=== PATIENT | female | born 1940 | race Caucasian/White ===

== ENCOUNTER 2023-08-10 12:29 | Emergency (ER) | payer MEDICARE, BC, SELFPAY ==
[2023-08-10 12:30] VITALS: BP 125/74; PULSE 94; RESP 18; TEMP 35.8; O2SAT 100; BMI 21.6
--- NOTE | 2023-08-10 12:47 | EX.ED.DYSGE1 ---
HPI History of Present Illness Chief Complaint: Wound Check Detail of Chief Complaint: Presents to have stitches removed from right chest Informant: patient Narrative Narrative: Patient presents for a wound check and to have stitches removed from her right chest. Patient states that she was being seen by physicians in [place] where she was living at the time and in June had a tach procedure on her right lung because she was having fluid collections that needed to be drained. She had a drain in place that was then removed and had stitches placed after the stitches were placed in the drain tube removed she had drainage from the wound so they restitch to the area. Patient developed a fluid collection beneath the stitches that the daughter thinks has gotten larger in the last 2 weeks. The daughter brought the patient to the area to care for her and is transferring her care here. Patient was post to have her stitches removed by her original surgeons 5 days ago. They will be establishing with a primary care physician here in the area but the daughter wanted to have her stitches removed and evaluate this fluid collection beneath the skin. Patient's had no fevers or chills or sweats. PFSH PFS Medical History (Updated 08/10/23 @ 14:[address] Kathlene Martinez, DO) Atrial fibrillation Depression Hypertension Lung cancer Overactive bladder Home Medications apixaban 5 mg tablet (Eliquis) 5 mg PO BID 08/10/23 [History Last Taken Unknown] escitalopram oxalate 5 mg tablet 5 mg PO DAILY 08/10/23 [History Last Taken Unknown] metoprolol tartrate 75 mg tablet 75 mg PO BID 08/10/23 [History Last Taken Unknown] trospium 20 mg tablet 20 mg PO BID 08/10/23 [History Last Taken Unknown] Allergy/AdvReac Type Severity Reaction Status Date / Time No Known Allergies Allergy Verified 08/10/23 12:33 Surgical History (Updated 08/10/23 @ 13:02 by Dalila Panchal) History of bilateral knee replacement History of knee surgery History of lung surgery Social History Smoking Status: Former smoker ROS ROS ED Review of Systems ROS Unobtainable: other Constitutional Constitutional ED: Reports lethargy; Denies chills, fever(s), sweats or weight loss Eyes Eyes: Denies blurry vision, change in vision or diplopia ENT ENT ED: Denies rhinorrhea or sore throat Cardiovascular Cardiovascular: Denies chest pain, orthopnea or racing heartbeat Respiratory/Chest Respiratory/Chest: Denies cough, dyspnea, dyspnea on exertion, orthopnea or sputum Gastrointestinal Gastrointestinal: Denies abdominal pain, diarrhea, nausea or vomiting Genitourinary Genitourinary ED: Denies dysuria, hematuria or urinary frequency Musculoskeletal Musculoskeletal: Denies arthralgias, back pain, myalgias or neck pain Integumentary Reports other Details: Need for suture removal and wound check ; Denies abscess, Abrasions or rash Neurologic Neurologic: Denies headache(s) or weakness Psychiatric Psychiatric: Denies anxiety, depression or suicidal thoughts Endocrine Endocrinology: Denies polydipsia, polyphagia or polyuria Hematologic/Lymphatic Hematologic/Lymphatic: Denies easy bleeding, easy bruising or lymphadenopathy Allergic/Immunologic Allergic/Immunologic ED: Denies mouth swelling, tongue swelling or urticaria EXAM Physical Exam Const Vital Signs: 08/10/23 12:30 Temperature 96.5 F L Temperature Source Temporal Pulse Rate 94 Respiratory Rate 18 Blood Pressure 125/74 H Blood Pressure Mean 91 Pulse Ox 100 Positive well nourished and well developed General Appearance ED: well developed and NAD HEENT Reports TM's clear and moist mucous membranes normocephalic and atraumatic; Negative for trauma or tenderness Tympanic Membrane ED: Yes TM's clear Eyes PERRL and EOMs intact bilaterally General Eye ED: Negative for pale conjunctiva or scleral icterus Neck no lymphadenopathy, supple and no JVD General: Negative for tenderness Chest Wall inspection of chest normal and palpation of chest normal Chest Narrative: Right chest wall-patient has [address] in the mid axillary line. She has soft tissue fluid collection beneath the skin measuring approximately 7 cm in diameter with fluid wave noted. There is no erythema or cellulitic changes or warmth. No signs of infection. Chest: Negative for tenderness Resp normal respiratory effort and clear to auscultation bilaterally Effort and Inspection: Negative for respiratory distress or pain with movement Auscultation: Negative for rhonchi, wheezes or diminished lung sounds Cardio regular rate, regular rhythm, S1 normal heart sound, S2 normal heart sound and no murmurs Peripheral Pulses: pulses 2+ throughout GI normal to inspection, nondistended, normoactive bowel sounds, soft to palpation, non-tender, non-distended and no masses Back/Spine no CVA tenderness and no thoracic nor lumbar tenderness Extremity normal to inspection General Extremety ED: Negative for edema General Extremity: Negative for edema Neuro oriented x3, CN's II-XII intact bilaterally, no sensory deficits noted and gait normal Sensorium / Orientation: awake, alert, oriented to person, oriented to place and oriented to time Motor Exam: strength 5/5 throughout and strength abnormal Psych mental status grossly normal Skin no rashes or lesions noted and no wounds MDM MDM MDM Narrative Medical decision making narrative: Patient presents to have her sutures removed from her right chest where she had a drain previously. Patient did not follow-up with her surgeon of record 5 days ago as instructed as she was moved up to [place] from [place] for her daughter to care for her here. Her daughter has not established new physicians as of yet. Patient also noted to have a soft tissue swelling and fluid underneath the skin where the sutures are placed. She has not had any fever or infectious symptoms otherwise. I did attempt to contact patient's surgeon of record Dr. Lyman however she was in the OR and I spoke with her nurse. Patient was well-known to them. Plan was to remove the sutures 5 days ago but there was no plan to do anything with the fluid underneath the skin as they felt that even if they remove the day it would reaccumulate. Patient has no signs of infection. I did obtain a CT scan of the chest to evaluate further the fluid collection. Patient does have moderate pleural effusions as well as a 7 cm x 4.3 cm x 5.8 cm soft tissue fluid density in the subcu tissues overlying the inferior right lateral chest wall. Patient also noted to have a pericardial effusion. Clinically she looks well and is stable. Recommended to daughter that she establish with a cardiothoracic surgeon as she may require further treatments of her pleural effusion if it continues to accumulate. Patient will also establish with [facility] oncology. I was able to remove patient stitches without difficulty she had 3 stitches that were easily removed. At this time there is no dehiscence. No signs of infection. I also discussed case with patient's oncologist from [place] who was comfortable with plan and stated that she needed to reestablish as currently she is only on immunotherapy and not currently taking chemotherapy. Radiography Diagnostic Testing: Clinical Impression(s) from Imaging Studies Chest CT 08/10/23 13:22 IMPRESSION: Mediastinal lymphadenopathy and right supraclavicular adenopathy. Moderate size loculated right pleural effusion with fluid in the right major fissure as well. Pericardial effusion. 7 cm x 4.3 cm x 5.8 cm soft tissue/fluid density in the subcutaneous tissues overlying the inferior right lateral chest wall. Electronically Signed: Long Farley MD at 14:14 EST , Discharge Plan Triage Chief Complaint: Wound Check ED Provider: Kathleen Martinez Dx/Rx/DC Orders Clinical Impression: Visit for wound check, Visit for suture removal Instructions: ED Post Op Wound Check, General, Sutr or Stap Removal Prescriptions: No Action trospium 20 mg tablet 20 mg PO BID Rx Instructions: administer on an empty stomach metoprolol tartrate 75 mg tablet 75 mg PO BID escitalopram oxalate 5 mg tablet 5 mg PO DAILY Eliquis 5 mg tablet 5 mg PO BID Primary Care Provider: Shayy Live Referrals: Shayy Live, [Primary Care Provider] - As Needed Activity Restrictions/Additional Instructions: Dr. Gaines cardiothoracic surgeon at [facility] Disposition Disposition: Home, Self Care
--- NOTE | 2023-08-10 13:22 | CT_ITS ---
STUDY: CT CHEST WITHOUT CONTRAST REASON FOR EXAM: Female, 82 years old. Fluid collection to right chest wall. History of a prior right chest tube insertion with the soft tissue swelling overlying the right lateral hemithorax. RADIATION DOSAGE (If Supplied By Facility): CTDIvol = ( 7.05 ) mGy, DLP = ( 244.94 ) mGycm TECHNIQUE: Transaxial imaging was performed without the administration of intravenous contrast material. Multiplanar coronal and sagittal images were reformatted. Individualized dose optimization techniques were used for this CT. COMPARISON: No relevant priors. FINDINGS: CHEST There is a 7 cm x4.3 cm x 5.8 cm soft tissue/fluid density in the subcutaneous tissues overlying the inferior right lateral chest wall. Mild increased markings at the left lung base suggestive of atelectasis and/or scarring. There is evidence of a moderate size loculated right pleural effusion with a small amount of fluid in the right major fissure. There are calcifications of the coronary arteries. Small pericardial effusion. Enlarged mediastinal lymph nodes more prominent in the aortopulmonary window as well as in the right paratracheal and subcarinal regions. There is a 2.5 cm x 3.3 cm rounded soft tissue density in the medial aspect of the right supraclavicular region. Enlarged lymph node should be ruled out. Normal hilar regions. Normal unenhanced pulmonary arteries. There is atherosclerotic calcification of the aortic arch with tortuosity and elongation of the aortic arch and descending thoracic aorta. There are multi-level degenerative changes of the thoracic spine. There is no demonstrated abnormality of the visualized upper abdomen. CT/Chest without Contrast IMPRESSION: Mediastinal lymphadenopathy and right supraclavicular adenopathy. Moderate size loculated right pleural effusion with fluid in the right major fissure as well. Pericardial effusion. 7 cm x 4.3 cm x 5.8 cm soft tissue/fluid density in the subcutaneous tissues overlying the inferior right lateral chest wall. Electronically Signed: Long Farley MD at 14:14 EST ,
[2023-08-10 14:58] VITALS: BP 141/78; PULSE 80; RESP 12; TEMP 35.5; O2SAT 95
== END 2023-08-10 15:00 | disposition home or self-care (01) ==
PROVIDERS: Emergency Provider Emergency Medicine; PCP Family Medicine; Visit Provider Emergency Medicine
DX: Z51.89 Encounter for other specified aftercare (principal); I48.91 Unspecified atrial fibrillation; Z87.891 Personal history of nicotine dependence; Z48.02 Encounter for removal of sutures; I10 Essential (primary) hypertension; Z85.118 Personal history of other malignant neoplasm of bronchus and lung; Z79.01 Long term (current) use of anticoagulants; Z79.899 Other long term (current) drug therapy; F32.A Depression, unspecified; Z96.653 Presence of artificial knee joint, bilateral
CPT/HCPCS: 71250; 99282

== ENCOUNTER → 2023-08-28 | Outpatient (CLI) | payer MEDICARE, BC, SELFPAY ==
--- NOTE | 2023-08-28 17:00 | RAD_ITS ---
STUDY: X-RAY - SOFT TISSUE NECK REASON FOR EXAM: Female, 83 years old. Neck pain TECHNIQUE: 2 view(s) of the neck were obtained. COMPARISON: None. FINDINGS: Normal visualized nasopharynx, oropharynx, hypopharynx. Normal epiglottis. Normal visualized subglottic tracheal air column. Normal prevertebral soft tissue structures. There are degenerative changes of the cervical spine with cervical spondylosis. The soft tissue structures are unremarkable. RAD/Neck for Soft Tissue IMPRESSION: Normal x-ray soft tissue neck. Degenerative disc disease of the cervical spine. Electronically Signed: Marlo Torres MD at 17:56 EST ,
== END | disposition home or self-care (01) ==
LOC: MTRAD 17:00
PROVIDERS: PCP Family Medicine; Referring Provider Family Medicine; Visit Provider Family Medicine
DX: M54.2 Cervicalgia (principal)
CPT/HCPCS: 70360

== ENCOUNTER → 2023-09-17 | Outpatient (CLI) | payer MEDICARE, BC, SELFPAY ==
--- NOTE | 2023-09-17 15:50 | RAD_ITS ---
INDICATION: SOB in CHF EXAMINATION/TECHNIQUE: X-RAY - XR Chest 2 Views COMPARISON: 08/10/2023 CT. FINDINGS: LINES/DEVICES: None. LUNGS: Layering right effusion with focal fluid with loculated fluid along the right lateral chest and minor fissure without significant change from prior CT. No gross left effusion. No new consolidation. No florid interstitial edema. No pneumothorax. MEDIASTINUM AND CARDIOVASCULAR STRUCTURES: Unchanged cardiomegaly. Aortic atherosclerosis. BONES AND SOFT TISSUES: Chronic anterior compression deformities at the thoracolumbar junction.. RAD/Chest PA and Lateral IMPRESSION: Cardiomegaly with unchanged moderate mixed layering right effusion and loculated fluid along the lateral right chest and right minor fissure. Electronically Signed: Nelson Boss MD at 18:46 EDT ,
[2023-09-17 17:51] LABS: BNP,B-Type NATRIURETIC PEPTIDE 193.7 pg/mL (0-100)
== END | disposition home or self-care (01) ==
LOC: MTLAB 15:50
PROVIDERS: PCP Family Medicine; Referring Provider Family Medicine; Visit Provider Family Medicine
DX: I50.9 Heart failure, unspecified (principal); R06.02 Shortness of breath
CPT/HCPCS: 36415; 71046; 83880

== ENCOUNTER 2023-10-28 17:32 | Emergency (ER) | payer MEDICARE, BC, SELFPAY ==
[2023-10-28] VITALS (8 sets, daily range): BP systolic 118–156; BP diastolic 79–91; PULSE 78–135; RESP 16–30; TEMP 35.9–36.4; O2SAT 94–98
--- NOTE | 2023-10-28 17:43 | EDS_ITS ---
HPI History of Present Illness Chief Complaint: Weakness Informant: patient and family Narrative Narrative: Here with daughter increasing weakness dyspnea since this afternoon. 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 History of A-fib diagnosis past June on metoprolol 75 mg twice daily and Eliquis. She has been compliant with last dose this morning. She denies feeling of racing heart or lightheaded symptoms. Denies chest pain. Per daughter has had pleural effusion drained along with pericardial effusion drain while in [place]. No cough. Prior similar symptoms: Yes PFSH PFSH Medical History Atrial fibrillation Depression Hypertension Lung cancer Overactive bladder Home Medications apixaban 5 mg tablet (Eliquis) 5 mg PO BID 08/10/23 [History Last Taken Unknown] escitalopram oxalate 5 mg tablet 5 mg PO DAILY 08/10/23 [History Last Taken Unknown] metoprolol tartrate 75 mg tablet 75 mg PO BID 08/10/23 [History Last Taken Unknown] trospium 20 mg tablet 20 mg PO BID 08/10/23 [History Last Taken Unknown] nitrofurantoin monohydrate/macrocrystals 100 mg capsule 100 mg PO Q12 #10 CAPSULES 10/28/23 [Rx Last Taken Unknown] Allergy/AdvReac Type Severity Reaction Status Date / Time No Known Allergies Allergy Verified 08/10/23 12:33 Surgical History History of bilateral knee replacement History of knee surgery History of lung surgery Social History Smoking Status: Former smoker ROS ROS ED Constitutional Constitutional ED: Denies chills, fever(s) or sweats Eyes Eyes: Denies change in vision ENT ENT ED: Denies dysphagia or sore throat Cardiovascular Cardiovascular: Denies chest pain, leg edema, palpitations or racing heartbeat Respiratory/Chest Respiratory/Chest: Reports dyspnea; Denies cough or dyspnea on exertion Gastrointestinal Gastrointestinal: Denies abdominal pain, diarrhea, nausea or vomiting Genitourinary Genitourinary ED: Denies dysuria, hematuria or urinary frequency Musculoskeletal Musculoskeletal: Denies back pain, extremity pain or neck pain Integumentary Denies rash or wounds Neurologic Neurologic: Reports weakness; Denies headache(s) or paresthesias EXAM Physical Exam Const Vital Signs: 10/28/23 17:33 10/28/23 17:42 10/28/23 18:30 Temperature 96.7 F L Temperature Source Temporal Pulse Rate 135 H 94 Respiratory Rate 18 28 H Respiratory Effort Short of Breath Respiratory Pattern Tachypnea Blood Pressure 118/79 127/91 H Blood Pressure Mean 92 103 Pulse Ox 94 94 Oxygen Delivery Method Room Air 10/28/23 19:00 10/28/23 19:47 10/28/23 20:00 Temperature Temperature Source Pulse Rate 100 82 78 Respiratory Rate 16 30 H 27 H Respiratory Effort Respiratory Pattern Blood Pressure 136/82 H 156/91 H 139/83 H Blood Pressure Mean 100 112 101 Pulse Ox 98 94 94 Oxygen Delivery Method Room Air Room Air Room Air 10/28/23 21:00 10/28/23 21:22 Temperature 97.6 F L Temperature Source Pulse Rate 79 78 Respiratory Rate 17 19 H Respiratory Effort Respiratory Pattern Blood Pressure 141/79 H 127/81 H Blood Pressure Mean 99 96 Pulse Ox 94 95 Oxygen Delivery Method Room Air Positive well nourished and well developed General Appearance ED: well developed and NAD HEENT Reports moist mucous membranes normocephalic and atraumatic Eyes PERRL, EOMs intact bilaterally and conjunctivae normal General Eye ED: Yes normal appearance of both eyes Neck no lymphadenopathy and supple General: Negative for tenderness Chest Wall Chest: Negative for tenderness Resp normal respiratory effort and normal air movement Resp Narrative: Blunting breath sounds right lower lobe Effort and Inspection: symmetric chest movement; Negative for respiratory distress Cardio no murmurs Rate: tachycardic Rhythm: abnormal rhythm Peripheral Pulses: pulses 2+ throughout GI normal to inspection, nondistended, normoactive bowel sounds and non-tender Palpation: Negative for guarding or rebound tenderness present Back/Spine no CVA tenderness and no thoracic nor lumbar tenderness Extremity normal to inspection General Extremety ED: Negative for edema or tenderness General Extremity: Negative for edema Neuro oriented x3 and no sensory deficits noted Sensorium / Orientation: awake and alert Skin no rashes or lesions noted and no wounds MDM MDM MDM Narrative Medical decision making narrative: Interventions / MDM: Differential diagnosis: Atrial fibrillation, pleural effusion Diagnosis considered but do not suspect: N/A My EKG interpretation: EKG #1: A-fib RVR 110, no ST or T wave changes. EKG #2 at 1959 sinus rhythm with no ST or T wave changes. Imaging independently reviewed and interpreted by myself: 1 view chest x-ray: Right pleural effusion. External documents reviewed: N/A Test considered but not ordered:N/A ED course: Patient sounded A-fib RVR confirmed with EKG. She has been compliant with her medications. IV Lopressor ordered. Workup initiated due to her weakness complaints. Chest x-ray urine added to the labs. Initial after 2 dose of Lopressor nurse reports heart rate in the 90s, her labs white count 11.9 electrolytes are all normal. Chest x-ray right pleural effusion she is not dyspneic or hypoxic. Urine notes signs of infection culture sent. Patient came back from the restroom then converted back to normal sinus rhythm. This confirmed on EKG. Clinically feeling much better after this. She was ambulated she is not hypoxic. She was started on Macrobid for UTI with weakness. Discussed with daughter since moving up. She is established with [facility] cardiology, cardiothoracic surgery, oncology, she is awaiting pulmonology. She continue her home medications. Return precautions. All questions were answered. Re-evaluation: stable Disposition discussed with patient/family/significant other: Patient and daughter Case discussed with consulting clinician: N/A This note was generated with [employer] dictation software. It may contain incorrect words, spelling, and punctuation that were not noted in checking the note before signing. Lab Data Attestation: I reviewed the patient's lab results. Labs: Laboratory Results - last 24 hr 10/28/23 10/28/23 17:40 19:45 WBC 11.5 H RBC 4.20 Hgb 12.2 Hct 38.7 MCV 92.1 MCH 29.0 MCHC 31.5 L RDW Std Deviation 49.9 H RDW Coeff of Jairon 14.7 H Plt Count 464 H MPV 10.4 Immature Gran % (Auto) 0.400 Neut % (Auto) 74.8 H Lymph % (Auto) 13.5 L Edmunds % (Auto) 8.8 Eos % (Auto) 1.9 Baso % (Auto) 0.6 Absolute Neuts (auto) 8.6 H Absolute Lymphs (auto) 1.56 Nucleated RBC % 0 PT 14.8 INR 1.2 APTT 30.9 Sodium 131 L Potassium 4.3 Chloride 98 Carbon Dioxide 27.0 Anion Gap 6 BUN 38 H Creatinine 1.00 Est GFR (MDRD) Af Amer 68 Est GFR (MDRD) Non-Af 56 L BUN/Creatinine Ratio 38.0 H Glucose 140 H Calcium 9.6 Urine Color Yellow Urine Clarity Clear Urine pH 6.5 Ur Specific [place] 1.010 Urine Protein 15 H Urine Glucose (UA) Normal Urine Ketones Negative Urine Occult Blood Negative Urine Nitrite Negative Urine Bilirubin Negative Urine Urobilinogen Normal Ur Leukocyte Esterase 500 H Urine RBC 0 SEEN Urine WBC 5-10 SEEN Ur Squamous Epith Cells 0 SEEN Urine Bacteria 1+ Urine Mucus 0 SEEN Radiography Diagnostic Testing: Clinical Impression(s) from Imaging Studies Chest X-Ray 10/28/23 17:45 IMPRESSION: Right lower lung consolidation with pleural effusion. Mediastinal lymphadenopathy. Electronically Signed: Flako Jin MD at 18:22 EDT Reading Location ID and State: [address] [place] [address] , Service support , Discharge Plan Triage Chief Complaint: Weakness ED Provider: Cuco Lozoya Dx/Rx/DC Orders Clinical Impression: Lung cancer, Acute UTI, AF (paroxysmal atrial fibrillation), Pleural effusion, right Instructions: Urinary Tract Infections in Women, ED AFIB, ED Pleural Effusion Prescriptions: New nitrofurantoin monohyd/m-cryst [nitrofurantoin monohyd/m-cryst] 100 mg capsule 100 mg PO Q12 Qty: 10 0RF No Action trospium 20 mg tablet 20 mg PO BID Rx Instructions: administer on an empty stomach metoprolol tartrate 75 mg tablet 75 mg PO BID escitalopram oxalate 5 mg tablet 5 mg PO DAILY Eliquis 5 mg tablet 5 mg PO BID Primary Care Provider: Maxim Pablo Referrals: Maxim Pablo MD [Primary Care Provider] - 1 Week Activity Restrictions/Additional Instructions: You were in atrial fibrillation however you converted in the ED. You have right pleural effusion. You have a urinary tract infection. Take and finish antibio tic as prescribed. Follow-up with your doctors through [facility]. Symptoms worsen, return to the ED for reevaluation. Continue your home medications. Disposition Disposition: Home, Self Care Discharge Date/Time: 10/28/23 21:31
--- NOTE | 2023-10-28 17:45 | RAD_ITS ---
STUDY: X-RAY CHEST REASON FOR EXAM: Female, 83 years old. Dyspnea TECHNIQUE: Single AP portable view of the chest. COMPARISON: September 17, 2023 FINDINGS: There is right mid and lower lung opacity with worsening consolidation and pleural effusion. There is loculation of effusion and/or mass in the lower lobe. There is postoperative change in the lower lung. There is mild cardiac enlargement. There is widening of the right paratracheal region consistent with lymphadenopathy. Normal visualized pulmonary arteries. Normal visualized aortic arch and descending thoracic aorta. Normal visualized thoracic spine. There is healed right rib fracture. There is no demonstrated abnormality of the visualized soft tissue structures of the upper abdomen. RAD/Chest 1 View (Portable) IMPRESSION: Right lower lung consolidation with pleural effusion. Mediastinal lymphadenopathy. Electronically Signed: Flako Jin MD at 18:22 EDT ,
[2023-10-28 18:00] LABS: Absolute Lymphocyte Count 1.56 X10^3/uL (0.83-4.51); Absolute Neutrophil Count 8.6 X10^3/uL (2.0-7.7); Basophil# 0.07 X10^3/uL; Basophil% 0.6 % (0-1); Eosinophil# 0.22 X10^3/uL; Eosinophils% 1.9 % (0-5); Hematocrit 38.7 % (37-47); Hemoglobin 12.2 g/dL (12.0-15.0); Lymphocyte # 1.56 X10^3/ul (0.83-4.51); Lymphocyte % 13.5 % (19-41); Mean Corp Hgb Conc 31.5 g/dL (32-36); Mean Corpuscular Volume 92.1 fL (81-99); Mean Platelet Vol. 10.4 fl (6.2-12.0); Monocyte# 1.01 X10^3/uL; Monocyte% 8.8 % (0-10); NRBC Flagged by Analyzer 0 % (0-5); Neutrophil # 8.63 X10^3/uL (2.7-7.7); Neutrophil % 74.8 % (47-70); Platelet Count 464 K/mm3 (150-450); RBC Distribution Width CV 14.7 % (11.6-14.6); RBC Distribution Width SD 49.9 fl (35.1-43.9); White Blood Count 11.5 K/mm3 (4.4-11.0)
[2023-10-28 18:05] LABS: International Normalized Ratio 1.2; Prothrombin Time (Protime)PT. 14.8 SECONDS (11.7-14.9)
[2023-10-28 18:06] LABS: Partial Thromboplast Time 30.9 Seconds (24.1-36.2)
[2023-10-28 18:12] LABS: Anion Gap 6 (5-15); BUN 38 mg/dL (7-18); Calcium,Total 9.6 mg/dL (8.5-10.1); Chloride 98 mmol/L (98-107); EST Glomerular Filtration Rate 56 mL/min (>60); Est Glom Filt Rate - Afr Amer 68 mL/min (>60); Glucose 140 mg/dL (74-106); Potassium 4.3 mmol/L (3.5-5.1); Sodium Level 131 mmol/L (136-145)
[2023-10-28] MEDS: Metoprolol Tartrate 5 MG/5 ML Vial IV ×2 (18:17→18:22)
[2023-10-28 19:50] LABS: Mucous, Urine 0 SEEN /hpf (<or=2+); Red Blood Cells-Urine 0 SEEN /hpf (0-5); Squamous Epithelial Cells - UA 0 SEEN /hpf (5-10)
[2023-10-28 19:56] LABS: Color, Urine Yellow (Yellow); Glucose, Dipstick Normal (Normal); Ketone-Dipstick Negative (Negative); Leukocyte Esterase-Dipstick 500 /ul (Negative); Nitrite-Dipstick Negative (Negative); Occult Blood-Urine Negative /ul (Negative); Protein-Dipstick 15 mg/dl (Negative); Urine Bilirubin Dipstick Negative (Negative); Urine Clarity Clear (Clear); Urine Urobilinogen Normal (Normal); Urine pH 6.5 (5.0 - 8.0)
[2023-10-28 20:04] LABS: Bacteria 1+ /hpf (None Seen); White Blood Cells 5-10 SEEN /hpf (0-5)
[2023-10-28] MEDS: Nitrofurantoin Macrocrystals 100 MG Capsule PO (21:21)
== END 2023-10-28 21:31 | disposition home or self-care (01) ==
PROVIDERS: Emergency Provider Emergency Medicine; PCP Family Medicine; Visit Provider Emergency Medicine
DX: R53.1 Weakness (principal); C34.90 Malignant neoplasm of unspecified part of unspecified bronchus or lung; I48.0 Paroxysmal atrial fibrillation; N39.0 Urinary tract infection, site not specified; J90 Pleural effusion, not elsewhere classified; Z87.891 Personal history of nicotine dependence; Z79.01 Long term (current) use of anticoagulants; I10 Essential (primary) hypertension; F32.A Depression, unspecified; Z79.899 Other long term (current) drug therapy; Z96.653 Presence of artificial knee joint, bilateral
CPT/HCPCS: 71045; 80048; 81001; 85025; 85610; 85730; 87086; 87088; 87186; 93005; 99284; A4216

== ENCOUNTER 2023-10-30 17:03 | Emergency (ER) | payer MEDICARE, BC, SELFPAY ==
[2023-10-30] VITALS (10 sets, daily range): BP systolic 99–160; BP diastolic 76–106; PULSE 78–155; RESP 12–30; TEMP 36.7–37.2; O2SAT 88–98
--- NOTE | 2023-10-30 17:57 | RAD_ITS ---
INDICATION: SOB EXAMINATION/TECHNIQUE: X-RAY - XR Chest 2 Views COMPARISON: September 17, 2023, October 28, 2023. Radiograph, August 10, 2023 CT FINDINGS: LINES/DEVICES: None. LUNGS: Increased right basilar opacification with layering effusion. Loculated effusion along the right minor fissure. Persistent patchy opacification in the lateral right midlung. No left lung consolidation or effusion. No florid edema. No pneumothorax. MEDIASTINUM AND CARDIOVASCULAR STRUCTURES: East silhouette is unchanged from prior exam with cardiomegaly. Aortic atherosclerosis. BONES AND SOFT TISSUES: Unremarkable. Sequela of old right lateral rib fracture. RAD/Chest PA and Lateral IMPRESSION: Increased chronic opacification in the right lower lung with unilateral layering effusion. Persistent patchy lateral right midlung opacities are also noted. Consider repeat CT characterization. Electronically Signed: Nelson Boss MD at 18:42 EDT ,
[2023-10-30 18:17] LABS: Absolute Lymphocyte Count 1.67 X10^3/uL (0.83-4.51); Absolute Neutrophil Count 8.8 X10^3/uL (2.0-7.7); Basophil# 0.07 X10^3/uL; Basophil% 0.6 % (0-1); Eosinophil# 0.23 X10^3/uL; Eosinophils% 1.9 % (0-5); Hematocrit 36.9 % (37-47); Hemoglobin 11.7 g/dL (12.0-15.0); Lymphocyte # 1.67 X10^3/ul (0.83-4.51); Lymphocyte % 14.1 % (19-41); Mean Corp Hgb Conc 31.7 g/dL (32-36); Mean Corpuscular Hgb 29.8 pg (27.0-32.0); Mean Corpuscular Volume 94.1 fL (81-99); Mean Platelet Vol. 10.5 fl (6.2-12.0); Monocyte% 9.3 % (0-10); NRBC Flagged by Analyzer 0 % (0-5); Neutrophil # 8.76 X10^3/uL (2.7-7.7); Neutrophil % 73.7 % (47-70); Platelet Count 438 K/mm3 (150-450); RBC Distribution Width CV 14.9 % (11.6-14.6); RBC Distribution Width SD 51.9 fl (35.1-43.9); Red Blood Count 3.92 M/mm3 (4.2-5.4); White Blood Count 11.9 K/mm3 (4.4-11.0)
[2023-10-30 18:35] LABS: Anion Gap 8 (5-15); BUN 35 mg/dL (7-18); BUN/Creat Ratio 43.2 RATIO (10-20); Calcium,Total 9.4 mg/dL (8.5-10.1); Chloride 98 mmol/L (98-107); Creatinine, Serum 0.81 mg/dL (0.55-1.02); EST Glomerular Filtration Rate 72 mL/min (>60); Est Glom Filt Rate - Afr Amer 87 mL/min (>60); Glucose 122 mg/dL (74-106); Potassium 4.3 mmol/L (3.5-5.1); Sodium Level 132 mmol/L (136-145); Troponin-I HS 6 pg/mL (3.0-54.0)
[2023-10-30 18:36] LABS: BNP,B-Type NATRIURETIC PEPTIDE 140.9 pg/mL (0-100)
--- NOTE | 2023-10-30 18:40 | CT_ITS ---
ACR Level 3 findings have been noted. An addendum which confirms receipt of the report will follow. INDICATION: shortness of breath EXAMINATION: CT CHEST WITHOUT CONTRAST - CT Chest W/O Contrast Injection TECHNIQUE: Helically acquired images were obtained of the chest. A radiation dose optimization technique was used for this scan. IV Contrast dosage and agent: None. COMPARISON: August 10, 2023. FINDINGS: LUNGS, PLEURA AND LARGE AIRWAYS: Persistent pleural thickening and loculated right mid and lower lung pleural effusion with new pleural thickening or loculated effusion at the right lateral lung apex. There is significant interval progression of bulky mediastinal adenopathy, reference 4.7 x 3.5 cm left prevascular lymph node axial image 40, previously 2.5 x 1.8 cm. Confluent superior mediastinal adenopathy, reference 5.0 x 5.3 cm confluent noted vascular structures previously 4.1 x 3.8 cm. Superior to the right lung apex there is a 6.7 x 4.2 cm node increased from 2.5 x 3.[address] No left pleural effusion or consolidation. No pneumothorax. THYROID: No thyroid lesions. HEART AND PERICARDIUM: Cardiomegaly. Small pericardial effusion. Mild calcified coronary atherosclerosis. Unremarkable esophagus. VESSELS: Aortic atherosclerosis without ectasia or intramural hematoma. UPPER ABDOMEN: No acute pathology. BONES: No suspicious lytic or blastic abnormality. CT/Chest without Contrast IMPRESSION: Persistent right pleural thickening and loculated effusion with increased involvement of the right lateral lung apex. Internal increase in size of bulky mediastinal and right supraclavicular adenopathy concerning for metastatic disease or lymphoma. Clinical follow-up is recommended with consideration with PET/CT and/or effusion sampling if not previously assessed. Cardiomegaly with small pericardial effusion. Electronically Signed: Nelson Boss MD at 19:51 EDT ,
[2023-10-30] MEDS: traMADol 50 MG Tablet PO (18:56)
--- NOTE | 2023-10-30 19:12 | EDS_ITS ---
HPI <JORGE A Saavedra - Last Filed: 10/30/23 22:06> History of Present Illness Chief Complaint: Shortness of Breath Narrative Narrative: Patient presenting today due to shortness of breath that started this afternoon. She reports that she had a similar episode 2 days ago and was seen here in the ED for this and ultimately discharged home. She reports that she feels both short of breath at rest and with exertion. Daughter reports that she appeared weak this afternoon and was also complaining of intermittent lightheadedness. She does have a history of lung cancer with right middle lobectomy that was performed over a year ago while living in [place]. This did metastasized to surrounding lymph nodes, she is on immunotherapy. She has had recurrent pleural effusions on the right side that have required thoracentesis. She has also required pericardiocentesis in the past. She is scheduled to receive a echocardiogram early next week. She does have a history of atrial fibrillation and is on Eliquis. She denies any fevers, chills, chest pain, or recent illness. [facility] <JORGE A Saavedra - Last Filed: 10/30/23 22:06> [facility] Medical History Atrial fibrillation Depression Hypertension Lung cancer Overactive bladder Home Medications apixaban 5 mg tablet (Eliquis) 5 mg PO BID 08/10/23 [History Last Taken Unknown] escitalopram oxalate 5 mg tablet 5 mg PO DAILY 08/10/23 [History Last Taken Unknown] metoprolol tartrate 75 mg tablet 75 mg PO BID 08/10/23 [History Last Taken Unknown] trospium 20 mg tablet 20 mg PO BID 08/10/23 [History Last Taken Unknown] baclofen 5 mg tablet 5 mg PO TID PRN 10/30/23 [History Last Taken Unknown] furosemide 40 mg tablet 40 mg PO BID #10 tabs 10/30/23 [Rx Last Taken Unknown] levofloxacin 500 mg tablet 500 mg PO Q24H #7 tabs 10/30/23 [Rx Last Taken Unknown] nitroglycerin 0.3 mg sublingual tablet 0.3 mg sublingual UD 10/30/23 [History Last Taken Unknown] tramadol 50 mg tablet 50 mg PO BID PRN 10/30/23 [History Last Taken Unknown] trazodone 50 mg tablet 50 mg PO QHS 10/30/23 [History Last Taken Unknown] vibegron 75 mg tablet (Gemtesa) 75 mg PO DAILY 10/30/23 [History Last Taken Unknown] Allergy/AdvReac Type Severity Reaction Status Date / Time No Known Allergies Allergy Verified 08/10/23 12:33 Surgical History History of bilateral knee replacement History of knee surgery History of lung surgery Social History Smoking Status: Former smoker ROS <JORGE A Saavedra - Last Filed: 10/30/23 22:06> ROS ED Constitutional Constitutional ED: Denies chills or fever(s) Cardiovascular Cardiovascular: Denies chest pain or palpitations Respiratory/Chest Respiratory/Chest: Reports dyspnea, dyspnea on exertion and tachypnea; Denies cough Gastrointestinal Gastrointestinal: Denies abdominal pain, nausea or vomiting Musculoskeletal Musculoskeletal: Denies arthralgias or myalgias Integumentary Denies rash Neurologic Neurologic: Reports weakness EXAM <JORGE A Saavedra - Last Filed: 10/30/23 22:06> Physical Exam Const Vital Signs: 10/30/23 17:05 10/30/23 17:06 10/30/23 18:06 Temperature 98.9 F 98.0 F Temperature Source Temporal Oral Pulse Rate 84 78 Respiratory Rate 12 20 H Respiratory Effort Respiratory Depth Respiratory Pattern Blood Pressure 148/84 H 160/80 H Blood Pressure Mean 105 106 Pulse Ox 92 98 Oxygen Delivery Method Room Air Room Air Oxygen Flow Rate (L/min) 10/30/23 19:00 10/30/23 17:59 10/30/23 19:10 Temperature Temperature Source Pulse Rate 81 Respiratory Rate 16 Respiratory Effort Normal Non-Labored Short of Breath Respiratory Depth Normal Respiratory Pattern Normal Blood Pressure 159/86 H Blood Pressure Mean 110 Pulse Ox 97 Oxygen Delivery Method Nasal Cannula Oxygen Flow Rate (L/min) 2 10/30/23 19:18 10/30/23 20:00 10/30/23 21:00 Temperature Temperature Source Pulse Rate 83 85 88 Respiratory Rate 24 H 29 H 16 Respiratory Effort Respiratory Depth Respiratory Pattern Blood Pressure 151/81 H 152/84 H Blood Pressure Mean 104 106 Pulse Ox 96 88 Oxygen Delivery Method Room Air Oxygen Flow Rate (L/min) 10/30/23 21:28 Temperature Temperature Source Pulse Rate 155 H Respiratory Rate 26 H Respiratory Effort Respiratory Depth Respiratory Pattern Blood Pressure Blood Pressure Mean Pulse Ox Oxygen Delivery Method Oxygen Flow Rate (L/min) Positive well nourished, well developed and no apparent distress General Appearance ED: well developed HEENT Reports normocephalic and head/scalp atraumatic Mouth ED: Yes moist mucous membranes normal Eyes PERRL and EOMs intact bilaterally Neck full ROM and supple Chest Wall inspection of chest normal Resp normal respiratory effort and clear to auscultation bilaterally Cardio regular rate and regular rhythm GI soft to palpation, non-tender, non-distended and no masses Back/Spine normal ROM and normal to inspection Extremity normal to inspection and full ROM Neuro oriented x3, CN's II-XII intact bilaterally, moves all extremities, no focal motor deficits and no sensory deficits noted Sensorium / Orientation: awake and alert Psych mental status grossly normal and thought process normal Skin no rashes or lesions noted and no wounds <Dr. Flako Gan MD - Last Filed: 10/30/23 21:00> Physical Exam Const Vital Signs: 10/30/23 17:05 10/30/23 17:06 10/30/23 18:06 Temperature 98.9 F 98.0 F Temperature Source Temporal Oral Pulse Rate 84 78 Respiratory Rate 12 20 H Respiratory Effort Respiratory Depth Respiratory Pattern Blood Pressure 148/84 H 160/80 H Blood Pressure Mean 105 106 Pulse Ox 92 98 Oxygen Delivery Method Room Air Room Air Oxygen Flow Rate (L/min) 10/30/23 19:00 10/30/23 17:59 10/30/23 19:10 Temperature Temperature Source Pulse Rate 81 Respiratory Rate 16 Respiratory Effort Normal Non-Labored Short of Breath Respiratory Depth Normal Respiratory Pattern Normal Blood Pressure 159/86 H Blood Pressure Mean 110 Pulse Ox 97 Oxygen Delivery Method Nasal Cannula Oxygen Flow Rate (L/min) 2 10/30/23 19:18 10/30/23 20:00 10/30/23 21:00 Temperature Temperature Source Pulse Rate 83 85 88 Respiratory Rate 24 H 29 H 16 Respiratory Effort Respiratory Depth Respiratory Pattern Blood Pressure 151/81 H 152/84 H Blood Pressure Mean 104 106 Pulse Ox 96 88 Oxygen Delivery Method Room Air Oxygen Flow Rate (L/min) 10/30/23 21:28 Temperature Temperature Source Pulse Rate 155 H Respiratory Rate 26 H Respiratory Effort Respiratory Depth Respiratory Pattern Blood Pressure Blood Pressure Mean Pulse Ox Oxygen Delivery Method Oxygen Flow Rate (L/min) [facility] <JORGE A Saavedra - Last Filed: 10/30/23 22:06> [facility] Narrative Medical decision making narrative: Patient presenting today due to dyspnea that started this afternoon. She is tachypneic on initial exam, she is on 2 L O2, I did take her off of this and she did not desaturate but did remain tachypneic. She was placed back on supplemental O2. Given she is on Eliquis, low suspicion for PE. Cardiac workup will be obtained. Chest x-ray will be obtained to rule out pleural effusion, infiltrate, and other cardiopulmonary abnormality. Chest x-ray shows increased opacification in the right lower lung with overlying effusion, CT scan of the chest will be obtained for better visualization. This shows right pleural thickening and loculated effusion. Initially, patient was not hypoxic, we plan to trial Lasix for the next 5 days, she was given an IV dose here. However, just prior to discharge she did become hypoxic around 88 to 89% on room air. We then ordered an albuterol breathing treatment and just prior to the treatment being started she went into A-fib RVR. Given we do not have IR here over the weekend, will need to transfer patient for IR evaluation and possible thoracentesis. We will attempt to discuss the case with Norman Herman. Patient will be given metoprolol to help control her heart rate, transfer is pending. Lab Data Attestation: I reviewed the patient's lab results. Lab results narrative: WBC 11.9, H&H 11.7, 36.9, sodium 132, BUN 35, Labs: Laboratory Results - last 24 hr 10/30/23 17:25 WBC 11.9 H RBC 3.92 L Hgb 11.7 L Hct 36.9 L MCV 94.1 MCH 29.8 MCHC 31.7 L RDW Std Deviation 51.9 H RDW Coeff of Jairon 14.9 H Plt Count 438 MPV 10.5 Immature Gran % (Auto) 0.400 Neut % (Auto) 73.7 H Lymph % (Auto) 14.1 L [place] % (Auto) 9.3 Eos % (Auto) 1.9 Baso % (Auto) 0.6 Absolute Neuts (auto) 8.8 H Absolute Lymphs (auto) 1.67 Nucleated RBC % 0 Sodium 132 L Potassium 4.3 Chloride 98 Carbon Dioxide 26.0 Anion Gap 8 BUN 35 H Creatinine 0.81 Est GFR (MDRD) Af Amer 87 Est GFR (MDRD) Non-Af 72 BUN/Creatinine Ratio 43.2 H Glucose 122 H Calcium 9.4 Troponin I High Sens 6 B-Natriuretic Peptide 140.9 H Radiography X-Ray: Read by ED Physician Diagnostic Testing: Clinical Impression(s) from Imaging Studies Chest X-Ray 10/30/23 17:57 IMPRESSION: Increased chronic opacification in the right lower lung with unilateral layering effusion. Persistent patchy lateral right midlung opacities are also noted. Consider repeat CT characterization. Electronically Signed: Nelson Boss MD at 18:42 EDT Reading Location ID and State: [facility] / [place] Tel , Service support , Chest CT 10/30/23 18:40 IMPRESSION: Persistent right pleural thickening and loculated effusion with increased involvement of the right lateral lung apex. Internal increase in size of bulky mediastinal and right supraclavicular adenopathy concerning for metastatic disease or lymphoma. Clinical follow-up is recommended with consideration with PET/CT and/or effusion sampling if not previously assessed. Cardiomegaly with small pericardial effusion. Electronically Signed: Nelson Boss MD at 19:51 EDT , ADDENDUM: 10/30/232004 IMPRESSION: Persistent right pleural thickening and loculated effusion with increased involvement of the right lateral lung apex. Internal increase in size of bulky mediastinal and right supraclavicular adenopathy concerning for metastatic disease or lymphoma. Clinical follow-up is recommended with consideration with PET/CT and/or effusion sampling if not previously assessed. Cardiomegaly with small pericardial effusion. N.B. : India Kim OT, confirmed on 10/30/2023 19:58:07 (ET) that the healthcare facility has received the radiology report. Electronically Signed: Nelson Boss MD at 19:51 EDT , EKG Initial EKG: Comments: 83 bpm, normal sinus rhythm, no ST elevation, reviewed and interpreted by attending ED physician <Dr. Flako Gan MD - Last Filed: 10/30/23 21:00> [facility] Lab Data Labs: Laboratory Results - last 24 hr 10/30/23 17:25 WBC 11.9 H RBC 3.92 L Hgb 11.7 L Hct 36.9 L MCV 94.1 MCH 29.8 MCHC 31.7 L RDW Std Deviation 51.9 H RDW Coeff of Jairon 14.9 H Plt Count 438 MPV 10.5 Immature Gran % (Auto) 0.400 Neut % (Auto) 73.7 H Lymph % (Auto) 14.1 L [place] % (Auto) 9.3 Eos % (Auto) 1.9 Baso % (Auto) 0.6 Absolute Neuts (auto) 8.8 H Absolute Lymphs (auto) 1.67 Nucleated RBC % 0 Sodium 132 L Potassium 4.3 Chloride 98 Carbon Dioxide 26.0 Anion Gap 8 BUN 35 H Creatinine 0.81 Est GFR (MDRD) Af Amer 87 Est GFR (MDRD) Non-Af 72 BUN/Creatinine Ratio 43.2 H Glucose 122 H Calcium 9.4 Troponin I High Sens 6 B-Natriuretic Peptide 140.9 H Radiography Diagnostic Testing: Clinical Impression(s) from Imaging Studies Chest X-Ray 10/30/23 17:57 IMPRESSION: Increased chronic opacification in the right lower lung with unilateral layering effusion. Persistent patchy lateral right midlung opacities are also noted. Consider repeat CT characterization. Electronically Signed: Nelson Boss MD at 18:42 EDT , Chest CT 10/30/23 18:40 IMPRESSION: Persistent right pleural thickening and loculated effusion with increased involvement of the right lateral lung apex. Internal increase in size of bulky mediastinal and right supraclavicular adenopathy concerning for metastatic disease or lymphoma. Clinical follow-up is recommended with consideration with PET/CT and/or effusion sampling if not previously assessed. Cardiomegaly with small pericardial effusion. Electronically Signed: Nelson Boss MD at 19:51 EDT , ADDENDUM: 10/30/232004 IMPRESSION: Persistent right pleural thickening and loculated effusion with increased involvement of the right lateral lung apex. Internal increase in size of bulky mediastinal and right supraclavicular adenopathy concerning for metastatic disease or lymphoma. Clinical follow-up is recommended with consideration with PET/CT and/or effusion sampling if not previously assessed. Cardiomegaly with small pericardial effusion. N.B. : India Kim OT, confirmed on 10/30/2023 19:58:07 (ET) that the healthcare facility has received the radiology report. Electronically Signed: Nelson Boss MD at 19:51 EDT , Treatment and Re-Evaluation Comments:: I have personally performed a face to face assessment of the patient and have reviewed the CHRIS Note. I performed a substantive portion of the visit including all aspects of the following. My corrigan findings include: History is gradual worsening dyspnea since here 2 days ago. No chest discomfort. Coughing with sputum production. Placed on nitrofurantoin for urinary tract infection couple days ago. History of pleurodesis on the right d ue to recurrent pleural effusion status post right lower lobe lobectomy over a year ago. Exam is decreased breath sounds right side. Trachea midline. Diffuse expiratory wheezes. Tachypnea but no respiratory distress. Tender large firm nodules bilateral supraclavicular area worse on the right. No JVD, no significant edema in the legs. Medical Decison Making chest x-ray shows no significant difference compared to 2 days ago, showing atelectasis versus effusion versus infiltrate in the right base on my interpretation. CT performed, I reviewed the images and the result and I agree with it, it is complex and showing what appears to be loculated effusion(s) as well as a small pericardial effusion. Patient had an echocardiogram in August that showed a small pericardial effusion. Clinically she is not in tamponade. We removed her from her oxygen the nurses placed her on she is not hypoxic, 91-96% on room air. Aerosol helped her some. It is Thursday night we do not have interventional radiology here until Thursday. If she wishes to be evaluated for thoracentesis which will probably not be easy to do at the bedside without CT guidance, I recommend transfer. Alternatively, I would prescribe her diuretic and antibiotic to cover her for bacterial bronchitis if she wishes to go home and rest and follow-up. She prefers the latter. Will attempt to put her on the schedule for an evaluation with IR after the for CT-guided thoracentesis. Scheduled for outpatient echocardiogram on Thursday. Other additions or changes: [None] Discharge Plan Triage Chief Complaint: Shortness of Breath ED Midlevel Provider: Aishwarya Torrez ED Provider: Flako Gan Dx/Rx/DC Orders Clinical Impression: Loculated pleural effusion, Lung cancer, Acute wheezy bronchitis Instructions: ED Pleural Effusion Prescriptions: New levofloxacin 500 mg tablet 500 mg PO Q24H Qty: 7 0RF furosemide 40 mg tablet 40 mg PO BID Qty: 10 0RF Continued trospium 20 mg tablet 20 mg PO BID Rx Instructions: administer on an empty stomach metoprolol tartrate 75 mg tablet 75 mg PO BID escitalopram oxalate 5 mg tablet 5 mg PO DAILY Eliquis 5 mg tablet 5 mg PO BID baclofen 5 mg tablet 5 mg PO TID PRN nitroglycerin 0.3 mg tablet, sublingual 0.3 mg sublingual UD tramadol 50 mg tablet 50 mg PO BID PRN trazodone 50 mg tablet 50 mg PO QHS Gemtesa 75 mg tablet 75 mg PO DAILY Primary Care Provider: Maxim Pablo Referrals: Maxim Pablo MD [Primary Care Provider] - Activity Restrictions/Additional Instructions: May discontinue nitrofurantoin when you get the new antibiotic. Disposition Disposition: Home, Self Care
[2023-10-30] MEDS: Albuterol 2.5 MG/3 ML VIAL.NEB. INHALATION ×2 (19:17→21:27)
[2023-10-30] MEDS: Furosemide 20 MG/2 ML VIAL IV (21:05)
[2023-10-30] MEDS: Metoprolol Tartrate 5 MG/5 ML Vial IV (22:37)
[2023-10-30] MEDS: dilTIAZem 25 MG/5 ML Vial 20 MG IV BOLUS (22:38)
[2023-10-30] MEDS: Metoprolol Tartrate 25 MG Tablet 75 MG PO (22:38)
[2023-10-31] VITALS: BP 113/85; PULSE 99; RESP 28; O2SAT 92
[2023-10-31] MEDS: Morphine 2 MG/ML Syringe IV (00:20)
[2023-10-31 01:00] VITALS: BP 121/73; PULSE 77; O2SAT 91
[2023-10-31 02:00] VITALS: BP 118/69; PULSE 74; RESP 16; O2SAT 92
[2023-10-31 02:01] VITALS: BP 118/69; PULSE 74; RESP 16; TEMP 36.2; O2SAT 92
== END 2023-10-31 02:03 | disposition short-term general hospital (02) ==
PROVIDERS: Physician Assistant; Emergency Provider Emergency Medicine; PCP Family Medicine; Visit Provider Emergency Medicine
DX: R06.02 Shortness of breath (principal); C77.9 Secondary and unspecified malignant neoplasm of lymph node, unspecified; C34.90 Malignant neoplasm of unspecified part of unspecified bronchus or lung; I48.91 Unspecified atrial fibrillation; J90 Pleural effusion, not elsewhere classified; J20.9 Acute bronchitis, unspecified; Z87.891 Personal history of nicotine dependence; Z79.01 Long term (current) use of anticoagulants; F32.A Depression, unspecified; Z79.899 Other long term (current) drug therapy; Z96.653 Presence of artificial knee joint, bilateral; R09.02 Hypoxemia
CPT/HCPCS: 71046; 71250; 80048; 83880; 84484; 85025; 93005; 94640; 96374; 96375; 99285; J1940